=== PATIENT | female | born 1930 | race African-American/Black ===

== ENCOUNTER 2017-02-20 14:29 | Emergency (ER) | payer MEDICARE, OTHER ==
[~2017-02-20] VITALS: Ht 165.1 cm; Wt 68.0 kg
[2017-02-20] MEDS ORDERED: TETANUS, DIPHTHERIA, PERTUSSIS VAC/PF 0.5ML (>7YR OLD) IM ONE (17:00)
[2017-02-20] MEDS ORDERED: BACITRACIN ZINC OINT UDPKT TOP ONE (17:00)
[2017-02-20 19:40] VITALS: BP 138/68
== END 2017-02-20 19:49 | disposition home or self-care (01) ==
LOC: ER 15:06
DX: S09.8XXA Other specified injuries of head, initial encounter (principal); W01.0XXA Fall on same level from slipping, tripping and stumbling without subsequent striking against object, initial encounter; Y93.89 Activity, other specified; Y92.89 Other specified places as the place of occurrence of the external cause; Y99.8 Other external cause status; I10 Essential (primary) hypertension
CPT/HCPCS: 70450; 90471; 90715; 99284